=== PATIENT | male | born 1970 | race Hispanic/Latino ===

== ENCOUNTER 2017-09-29 18:35 | Emergency (ER) | payer BC ==
[2017-09-29] MEDS ORDERED: Lidocaine 2% Inj (20ml) INFIL STA (19:54)
[2017-09-29] MEDS ORDERED: Bacitracin 500 Units/gm Oint Foilpak UD TOP STA (19:54)
[2017-09-29] MEDS ORDERED: Lidocaine 2% MPF (5 ml) Inj ONE (19:59)
[2017-09-29] MEDS ORDERED: Bacitracin 500 Units/gm Oint Foilpak UD ONE (20:06)
[2017-09-29 20:22] VITALS: BP 128/84; PULSE 60; RESP 18; TEMP 98.1; O2SAT 96
--- NOTE | 2017-09-29 20:43 | C.PDOC ---
History Of Present Illness 46 year old male presents to the ED c/o right great toe pain. Patient reports that yeserday he hit his right great toe against the refrigerator door which caused him to have a partially avulsed toe nail. Patient states pain is worse with movement, no active bleeding. Patient denies fever, chills, weakness, numbness. Time Seen by Provider: 09/29/17 19:24 Chief Complaint (Nursing): Lower Extremity Problem/Injury History Per: Patient History/Exam Limitations: no limitations Onset/Duration Of Symptoms: Days Current Symptoms Are (Timing): Still Present Recent travel outside of the [place]: No Additional History Per: Patient - Ankle/Foot Description Of Injury: Struck With Object (refrigerator door) Currently Unable To: Bend Or Move Past Medical History Reviewed: Historical Data, Nursing Documentation, Vital Signs Vital Signs: Last Vital Signs Temp 98.1 F 09/29/17 20:21 Pulse 60 09/29/17 20:21 Resp 18 09/29/17 20:21 BP 128/84 09/29/17 20:21 Pulse Ox 96 09/29/17 22:20 - Medical History PMH: No Chronic Diseases Surgical History: No Surg Hx Family History: States: Unknown Family Hx - Social History Hx Alcohol Use: Yes Hx Substance Use: No - Immunization History Hx Tetanus Toxoid Vaccination: No Hx Influenza Vaccination: No Hx Pneumococcal Vaccination: No Review Of Systems Constitutional: Negative for: Fever, Chills Cardiovascular: Negative for: Chest Pain Respiratory: Negative for: Shortness of Breath Musculoskeletal: Positive for: Foot Pain Skin: Negative for: Rash Neurological: Negative for: Weakness, Numbness Physical Exam - Physical Exam Appears: Non-toxic, No Acute Distress Skin: Normal Color, Warm, Dry Head: Atraumatic, Normacephalic Eye(s): bilateral: Normal Inspection Extremity: Normal ROM, Capillary Refill (<2 seconds), Other (right great toe nail partially avulsed, only attached by proximal part of the nail. no active bleeding) Extremity: Bilateral: Normal Color And Temperature, Normal ROM Pulses: Left Dorsalis Pedis: Normal, Right Dorsalis Pedis: Normal Neurological/Psych: Oriented x3, Normal Speech Gait: Steady ED Course And Treatment O2 Sat by Pulse Oximetry: 96 - Other Rad Right foot X-Ray X-Ray: Interpreted by Me, Viewed By Me Interpretation: No fracture or dislocation seen Progress Note: Plan: - Right foot X-ray. Podiatry resident was called and consulted regarding the case, they recommend removing completely the nail. 2% lidocaine digital block was applied to the right great toe, removed the avulsed nail. Cleaned the area with saline, applied bacitracin and dressing as well. Patient was D/C home and instrcuted to follow up with [facility] in 1 -2 days for further evaluation. Disposition - Disposition Referrals: Tushar Alexander DPM [Staff Provider] - Disposition: HOME/ ROUTINE Disposition Time: 20:41 Condition: STABLE Additional Instructions: Follow up with [facility] within 1-2 days. Return to ED if feel worse. Prescriptions: Bacitracin OINT 1 applic TP TID #45 g Instructions: Nail Avulsion (DC) Forms: [employer] [facility] [facility] ([place]) - Clinical Impression Clinical Impression: Avulsion of toenail of right foot - PA / IT APPLICATIONS ANALYST / Resident Statement MD/DO has reviewed & agrees with the documentation as recorded. - Scribe Statement The provider has reviewed the documentation as recorded by the Scribe Kishor Combs All medical record entries made by the Scribe were at my direction and personally dictated by me. I have reviewed the chart and agree that the record accurately reflects my personal performance of the history, physical exam, medical decision making, and the department course for this patient. I have also personally directed, reviewed, and agree with the discharge instructions and disposition.
--- NOTE | 2017-09-30 08:03 | RAD ---
PROCEDURE: Radiographs of the right great toe. TECHNIQUE:: AP radiograph of the right foot, with oblique and lateral view of the right great toe. COMPARISON: None. FINDINGS: BONES: No acute cardiopulmonary disease appreciated. JOINTS: Normal. SOFT TISSUES: The toenail of the great toe may be up lifted. Clinically correlate. OTHER FINDINGS: None. IMPRESSION: No acute fracture dislocation right great toe. Toenail may be up lifted from the toenail bed. Clinically correlate.
== END 2017-09-29 20:56 | disposition home or self-care (01) ==
LOC: C.ER 18:35
DX: S91.201A Unspecified open wound of right great toe with damage to nail, initial encounter (principal); W22.8XXA Striking against or struck by other objects, initial encounter; Y92.9 Unspecified place or not applicable